=== PATIENT | male | born 1970 | race Caucasian/White ===

== ENCOUNTER → 2016-12-01 | Outpatient (REF) ==
--- NOTE | 2016-12-01 13:43 | REP ---
LEFT HIP SERIES: Two views. HISTORY: Degenerative disc disease. FINDINGS: AP and frog-leg views of the left hip show severe osteoarthritis involving the left hip with joint space narrowing and acetabular spurring and sclerosis. There are two ossicles superiorly and laterally at the left hip. These are felt to be periarticular calcifications. Intra-articular loose bodies cannot be excluded. There is irregularity of the articular cortical margin of both sides of the left hip joint with some flattening of the femoral head. IMPRESSION: Severe left hip osteoarthritis with irregularity, sclerosis and periarticular ossicles. Signed by Zachary Urrutia MD 12/01/2016 02:57 P
== END ==
LOC: M SMT 11:54
PROVIDERS: ATTEND Internal Medicine
DX: M16.12 Unilateral primary osteoarthritis, left hip (principal)